=== PATIENT | male | born 1935 | race Hispanic/Latino ===

== ENCOUNTER 2019-02-08 08:46 | Inpatient (IN) | payer MEDICARE ==
[~2019-02-08] VITALS: Ht 170.2 cm; Wt 77.0 kg
[~2019-02-08 08:46] MED LIST: AMLODIPINE2.5 MG PO; BACTRIM DS1 TAB PO; CEPHALEXIN500 MG PO; CLARITIN10 MG PO; EXTRA STRENGTH500 MG; HYDROCHLOROT12.5 MG PO; METOCLOPRAMIDE H5 MG PO; METRONIDAZOL500 MG PO; OMEPRAZOLE40 MG PO; PERCOCET 5/321 COMBO PO; PERCOCET 5/325M1 TAB PO
[2019-02-08 09:36] LABS: HEMATOCRIT 45.7 % (39.0-50.0); HEMOGLOBIN 14.9 g/dl (14.0-18.0); IMMATURE GRANULOCYTES 0.4 % (0.0-5.0); MEAN CELL VOLUME 92.3 fL CALC (80.0-100.0); MEAN CORPUSCULAR HGB 30.1 pG CALC (26.0-32.0); MEAN CORPUSCULAR HGB CONC 32.6 g/L CALC (32.0-36.0); NEUT# 10.89 thou/uL (1.82-7.42); RED BLOOD COUNT 4.95 mill/uL (4.70-6.10); RED CELL DISTRI WIDTH 12.9 % (11.5-15.5); URINE BILIRUBIN - DIPSTICK NEGATIVE (NEGATIVE); URINE BLOOD DIPSTICK NEGATIVE (NEGATIVE); URINE COLOR YELLOW; URINE GLUCOSE - DIPSTICK NEGATIVE (NEGATIVE); URINE KETONE TRACE mg/dL (NEGATIVE); URINE LEUK ESTERASE NEGATIVE (NEGATIVE); URINE NITRITE - DIPSTICK NEGATIVE (Negative); URINE PROTEIN - DIPSTICK TRACE mg/dL (NEG-TRACE); URINE SPECIFIC GRAVITY 1.015; URINE UROBILINOGEN - DIPSTICK 0.2 E.U./dL (0.2)
[2019-02-08 09:44] LABS: ALBUMIN 4.6 g/dL (3.2-5.0); ALKALINE PHOSPHATASE 114 u/l (38-126); ANION GAP 17 (6-22 (CALC)); BILIRUBIN, TOTAL 0.6 mg/dL (0.0-1.4); BUN 13 mg/dL (8-23); BUN/CREATININE RATIO 16 (12-20 (CALC)); CARBON DIOXIDE 25 mmol/l (22-30); CHLORIDE 104 mmol/l (95-108); CREATININE 0.8 mg/dL (0.7-1.3); GFR > 60 ML/MIN (>=60 (CALC)); GFR FOR AFR.AMER. > 60 ML/MIN (>=60 (CALC)); SGOT/AST 18 u/l (19-48); SODIUM 142 mmol/l (137-146); TOTAL PROTEIN 7.8 g/dL (6.3-8.2)
[2019-02-08 17:02] VITALS: BP 158/72
[2019-02-08 18:58] VITALS: BP 141/64
[2019-02-09] VITALS: BP 123/71
[2019-02-09 03:50] VITALS: BP 125/70
[2019-02-09 05:02] LABS: IMMATURE GRANULOCYTES 0.3 % (0.0-5.0); MEAN CELL VOLUME 92.7 fL CALC (80.0-100.0); MEAN CORPUSCULAR HGB 29.7 pG CALC (26.0-32.0); NEUT# 4.09 thou/uL (1.82-7.42); RED BLOOD COUNT 4.11 mill/uL (4.70-6.10); RED CELL DISTRI WIDTH 13.2 % (11.5-15.5)
[2019-02-09 05:07] LABS: HEMATOCRIT 38.1 % (39.0-50.0); HEMOGLOBIN 12.2 g/dl (14.0-18.0)
[2019-02-09 06:22] LABS: ALKALINE PHOSPHATASE 76 u/l (38-126); AMYLASE 37 u/l (30-110); ANION GAP 12 (6-22 (CALC)); BILIRUBIN, TOTAL 0.4 mg/dL (0.0-1.4); BUN 12 mg/dL (8-23); BUN/CREATININE RATIO 17 (12-20 (CALC)); CARBON DIOXIDE 25 mmol/l (22-30); CHLORIDE 107 mmol/l (95-108); CREATININE 0.7 mg/dL (0.7-1.3); GFR > 60 ML/MIN (>=60 (CALC)); GFR FOR AFR.AMER. > 60 ML/MIN (>=60 (CALC)); LIPASE 25 u/l (23-300); MAGNESIUM 1.8 mg/dL (1.6-2.3); POTASSIUM 4.1 mmol/l (3.5-5.1); SGOT/AST 16 u/l (19-48); SODIUM 140 mmol/l (137-146)
[2019-02-09 06:26] LABS: ALBUMIN 3.1 g/dL (3.2-5.0); TOTAL PROTEIN 5.7 g/dL (6.3-8.2)
[2019-02-09 10:00] VITALS: BP 116/68
[2019-02-09 16:53] VITALS: BP 127/60
[2019-02-09 19:00] VITALS: BP 111/58
[2019-02-10 03:48] VITALS: BP 111/51
[2019-02-10 05:24] LABS: HEMATOCRIT 38.3 % (39.0-50.0); HEMOGLOBIN 12.5 g/dl (14.0-18.0); IMMATURE GRANULOCYTES 0.7 % (0.0-5.0); MEAN CELL VOLUME 92.1 fL CALC (80.0-100.0); MEAN CORPUSCULAR HGB CONC 32.6 g/L CALC (32.0-36.0); NEUT# 3.58 thou/uL (1.82-7.42); RED BLOOD COUNT 4.16 mill/uL (4.70-6.10); RED CELL DISTRI WIDTH 13.1 % (11.5-15.5)
[2019-02-10 05:49] LABS: ALBUMIN 3.2 g/dL (3.2-5.0); ALKALINE PHOSPHATASE 71 u/l (38-126); ANION GAP 12 (6-22 (CALC)); BILIRUBIN, TOTAL 0.4 mg/dL (0.0-1.4); BUN 13 mg/dL (8-23); BUN/CREATININE RATIO 18 (12-20 (CALC)); CARBON DIOXIDE 26 mmol/l (22-30); CHLORIDE 104 mmol/l (95-108); CREATININE 0.7 mg/dL (0.7-1.3); GFR > 60 ML/MIN (>=60 (CALC)); GFR FOR AFR.AMER. > 60 ML/MIN (>=60 (CALC)); MAGNESIUM 1.9 mg/dL (1.6-2.3); SGOT/AST 25 u/l (19-48); SODIUM 138 mmol/l (137-146); TOTAL PROTEIN 5.7 g/dL (6.3-8.2)
[2019-02-10 07:58] VITALS: BP 141/68
== END 2019-02-10 14:45 | disposition home or self-care (01) | DRG 390 ==
LOC: ED 08:46 → ED-I 14:50 → MS2 15:07 → ED 15:07 → MS2 16:20
PROVIDERS: Emergency Medicine; ADMIT Internal Medicine Nephrology; ATTEND Internal Medicine Nephrology
DX: K56.600 Partial intestinal obstruction, unspecified as to cause (principal); I10 Essential (primary) hypertension; K21.9 Gastro-esophageal reflux disease without esophagitis; Z90.49 Acquired absence of other specified parts of digestive tract; Z87.891 Personal history of nicotine dependence
CPT/HCPCS: Q9967; S0164

== ENCOUNTER 2022-02-17 15:06 | Emergency (ER) | payer MEDICARE ==
[~2022-02-17] VITALS: Ht 170.2 cm; Wt 68.0 kg
[2022-02-17] VITALS (16 sets, daily range): BP systolic 124–165; BP diastolic 59–78
[2022-02-17 15:37] LABS: HEMATOCRIT 38.7 % (39.0-50.0); HEMOGLOBIN 12.8 g/dl (14.0-18.0); IMMATURE GRANULOCYTES 0.5 % (0.0-5.0); MEAN CELL VOLUME 93.9 fL CALC (80.0-100.0); MEAN CORPUSCULAR HGB 31.1 pG CALC (26.0-32.0); MEAN CORPUSCULAR HGB CONC 33.1 g/dL CAL (32.0-36.0); NEUT# 7.64 thou/uL (1.82-7.42); RED BLOOD COUNT 4.12 mill/uL (4.70-6.10); RED CELL DISTRI WIDTH 12.9 % (11.5-15.5)
[2022-02-17 15:57] LABS: ALBUMIN 4.1 g/dL (3.2-5.0); ALKALINE PHOSPHATASE 120 u/l (38-126); ANION GAP 15 (6-22 (CALC)); BUN 12 mg/dL (8-23); BUN/CREATININE RATIO 17 (12-20 (CALC)); CARBON DIOXIDE 24 mmol/l (22-30); CHLORIDE 107 mmol/l (95-108); CPK 77 u/l (52-200); CREATININE 0.7 mg/dL (0.7-1.3); ETHYL ALCOHOL 0 mg/dl (0-30); GFR > 60 ML/MIN (>=60 (CALC)); GFR FOR AFR.AMER. > 60 ML/MIN (>=60 (CALC)); LIPASE 40 u/l (23-300); POTASSIUM 2.9 mmol/l (3.5-5.1); SGOT/AST 21 u/l (19-48); SODIUM 143 mmol/l (137-146)
[2022-02-17 15:58] LABS: BILIRUBIN, TOTAL 0.2 mg/dL (0.0-1.4); PROTHROMBIN TIME 10.2 SECONDS (9.0-12.5)
[2022-02-17] MEDS ORDERED: KLOR-CON M2020 MEQ PO (18:15)
== END 2022-02-17 19:25 | disposition home or self-care (01) ==
LOC: ED 15:06
PROC: 0RSJXZZ Reposition Right Shoulder Joint, External Approach (ICD-10-PCS; principal; 2022-02-17)
DX: S43.014A Anterior dislocation of right humerus, initial encounter (principal); S00.03XA Contusion of scalp, initial encounter; E87.6 Hypokalemia; I10 Essential (primary) hypertension; K21.9 Gastro-esophageal reflux disease without esophagitis; W01.0XXA Fall on same level from slipping, tripping and stumbling without subsequent striking against object, initial encounter; Y93.89 Activity, other specified; Y92.007 Garden or yard of unspecified non-institutional (private) residence as the place of occurrence of the external cause; Z20.822 Contact with and (suspected) exposure to COVID-19

== ENCOUNTER 2022-06-08 11:05 | Inpatient (IN) | payer MEDICARE ==
[2022-06-08] VITALS (32 sets, daily range): BP systolic 117–177; BP diastolic 47–84
[~2022-06-08] VITALS: Ht 170.2 cm; Wt 71.0 kg
[~2022-06-08 11:05] MED LIST changes: +KLOR-CON M2020 MEQ PO
--- NOTE | 2022-06-08 11:15 | NUR ---
PT TO ROOM 14 FOR BEDSIDE TRIAGE.
--- NOTE | 2022-06-08 12:16 | NUR ---
PROVIDER AT BEDSIDE.
[2022-06-08 13:16] LABS: HEMATOCRIT 41.9 % (39.0-50.0); IMMATURE GRANULOCYTES 0.2 % (0.0-5.0); MEAN CELL VOLUME 89.7 fL CALC (80.0-100.0); MEAN CORPUSCULAR HGB CONC 33.4 g/dL CAL (32.0-36.0); NEUT# 8.22 thou/uL (1.82-7.42); RED BLOOD COUNT 4.67 mill/uL (4.70-6.10); RED CELL DISTRI WIDTH 13.1 % (11.5-15.5)
[2022-06-08 13:32] LABS: ALKALINE PHOSPHATASE 104 u/l (38-126); ANION GAP 15 (6-22 (CALC)); BILIRUBIN, TOTAL 0.5 mg/dL (0.0-1.4); BUN 13 mg/dL (8-23); BUN/CREATININE RATIO 18 (12-20 (CALC)); CARBON DIOXIDE 26 mmol/l (22-30); CHLORIDE 102 mmol/l (95-108); CREATININE 0.7 mg/dL (0.7-1.3); GFR FOR AFR.AMER. > 60 ML/MIN (>=60 (CALC)); GFR OTHER RACES > 60 ML/MIN (>=60 (CALC)); LIPASE < 10 u/l (23-300); POTASSIUM 4.3 mmol/l (3.5-5.1); SGOT/AST 18 u/l (19-48); SODIUM 139 mmol/l (137-146); TOTAL PROTEIN 7.2 g/dL (6.3-8.2)
--- NOTE | 2022-06-08 15:15 | NUR ---
18FR. SALEM-SUMP NG TUBE PLACED VIA R-NARE. PLACEMENT VERIFIED VIA AUSCULTATION OF AIR BOLUS AND ASPIRATION OF STOMACH CONTENT. OUTPUT IS MOSTLY CLEAR AND PT REPORTS HE'S "ONLY BEEN DRINKING WATER" AND HASNT EATNE SINCE YESTERDAY. PT TOLERATED PROCEDURE WELL.
[2022-06-08] MEDS ORDERED: LOSARTAN POTASS25 MG PO (16:23)
[2022-06-08] MEDS ORDERED: METFORMIN HCL500 M1 PO (16:24)
--- NOTE | 2022-06-08 16:56 | NUR ---
PT'S SON AT BEDSIDE. UPDATED ON PLAN OF CARE.
--- NOTE | 2022-06-08 18:10 | NUR ---
PT ARRIVED TO [facility] VIA STRETCHER, ACCOMPANIED BY TEN WILSON. PT A&O X3. EVEN AND UNLABORED RESPIRATIONS; CLEAR LUNG SOUNDS. TELEMETRY IN PLACE. IV SITE HEALTHY AND PATENT. NG TUBE IN PLACE. PT ORIENTED TO ROOM AND USE OF CALL LIGHT. SAFETY PRECAUTIONS IN PLACE WITH CALL LIGHT IN REACH.
--- NOTE | 2022-06-08 18:15 | NUR ---
PT TRANSFERRED UP TO ROOM 263 VIA STRETCHER. BEDSIDE REPORT GIVEN TO EDGAR HENDERSON.
--- NOTE | 2022-06-08 19:35 | NUR ---
PATIENT RESTING BED. NO DISTRESS NOTED. PATIENT IS UPPER SORBIAN SPEAKING ONLY. ADMISSION ASSESSMENT COMPLETED WITH SANTIAGO TANNER. PATIENT AOX3. STATES THAT HE HAS SOME DISCOMFORT IN LOWER ABDOMEN, BUT DOES NOT NEED ANY PAIN MEDICATION. NG TUBE IN PLACE ON LOW INTERMITTENTENT SUCTION. FALL PRECAUTION REVIEWED WITH PATIENT. PLACED ON BED ALARM. CALL KHAN WITHIN REACH.
[2022-06-09 03:56] VITALS: BP 132/61
[2022-06-09 04:42] LABS: MEAN CELL VOLUME 89.8 fL CALC (80.0-100.0); MEAN CORPUSCULAR HGB 30.2 pG CALC (26.0-32.0); MEAN CORPUSCULAR HGB CONC 33.6 g/dL CAL (32.0-36.0); RED BLOOD COUNT 3.84 mill/uL (4.70-6.10); RED CELL DISTRI WIDTH 13.4 % (11.5-15.5)
[2022-06-09 04:46] LABS: HEMATOCRIT 34.5 % (39.0-50.0); HEMOGLOBIN 11.6 g/dl (14.0-18.0)
[2022-06-09 04:58] LABS: ALBUMIN 2.9 g/dL (3.2-5.0); ALKALINE PHOSPHATASE 69 u/l (38-126); ANION GAP 10 (6-22 (CALC)); BILIRUBIN, TOTAL 0.5 mg/dL (0.0-1.4); BUN 11 mg/dL (8-23); BUN/CREATININE RATIO 18 (12-20 (CALC)); CARBON DIOXIDE 23 mmol/l (22-30); CHLORIDE 110 mmol/l (95-108); CREATININE 0.6 mg/dL (0.7-1.3); GFR FOR AFR.AMER. > 60 ML/MIN (>=60 (CALC)); GFR OTHER RACES > 60 ML/MIN (>=60 (CALC)); MAGNESIUM 1.6 mg/dL (1.6-2.3); POTASSIUM 4.5 mmol/l (3.5-5.1); SGOT/AST 19 u/l (19-48); SODIUM 139 mmol/l (137-146); TOTAL PROTEIN 5.5 g/dL (6.3-8.2)
--- NOTE | 2022-06-09 06:50 | NUR ---
RECEIVED REPORT FROM TEN MONTOYA.
[2022-06-09 06:52] VITALS: BP 123/53
--- NOTE | 2022-06-09 08:10 | NUR ---
.PT SITTING ON BED LOW FOWLERS; A&O X3. PT WITH HEARING DEFICIT. EVEN AND UNLABORED RESPIRATIONS: CLEAR LUNG SOUNDS UPON AUSCULTATION. TELEMETRY IN PLACE WITH LAST READING SR-70. NG TUBE IN PLACE WITH LOW INTERMITTENT SUCTION. HYPOACTIVE BOWEL SOUNDS X4 QUADRANTS. SAFETY PRECAUTIONS IN PLACE WITH CALL LIGHT IN REACH,
[2022-06-09 10:22] VITALS: BP 129/48
--- NOTE | 2022-06-09 11:17 | NUR ---
ADMINISTERED LAST DOSE OF GASTROGRAFIN, RADIOLOGY DEPARTMENT INFORMED OF SAME.
--- NOTE | 2022-06-09 12:00 | NUR ---
PT RESTING WITH EYES CLOSED. NO DISTRESS OR PAIN NOTED. IV SITE HEALTHY AND PATENT, INFUSING IV FLUIDS PER ORDER. PT REMAINS NPO. SAFETY PRECAUTIONS IN PLACE WITH CALL LIGHT IN REACH.
--- NOTE | 2022-06-09 12:42 | NUR ---
PT TAKEN TO RADIOLOGY VIA WHEELCHAIR BY AIDE; TO RADIOLOGY FOR CT SCAN.
--- NOTE | 2022-06-09 13:02 | NUR ---
PT IS BACK FROM CT SCAN. IV SITE HEALTHY AND PATENT, INFUSING IV FLUIDS PER ORDER. NG TUBE IN PLACE WITH LOW INTTERMITANT SUCTION. SAFETY PRECAUTIONS IN PLACE WITH CALL LIGHT IN REACH.
[2022-06-09 14:50] VITALS: BP 138/60
--- NOTE | 2022-06-09 14:58 | NUR ---
PT ON BED LOW FOWLERS POSITION. FAMILY AT BEDSIDE. PT AND FAMILY INFORMED OF NG TUBE REMOVAL ORDERS; PT AND FAMILY AGREED TO SAME. NG TUBE REMOVED FROM RT NARE, PT TOLERATED WELL. PT ASSISTED TO BATHROOM: DARK GREEN FORMED BM. PT INFORMED ABOUT NEW FULL LIQUID DIET PER 'S DIRK ORDERS. SAFETY PRECAUTIONS IN PLACE WITH CALL LIGHT IN REACH.
--- NOTE | 2022-06-09 16:15 | NUR ---
PT RESTING WITH EYES CLOSED. NO DISTRESS OR PAIN NOTED. IV SITE HEALTHY AND PATENT, INFUSING IV FLUIDS PER ORDER. SAFETY PRECAUTIONS IN PLACE WITH CALL LIGHT IN REACH.
[2022-06-09 17:23] LABS: URINE BILIRUBIN - DIPSTICK NEGATIVE (NEGATIVE); URINE BLOOD DIPSTICK NEGATIVE (NEGATIVE); URINE COLOR YELLOW; URINE GLUCOSE - DIPSTICK NEGATIVE (NEGATIVE); URINE KETONE NEGATIVE (NEGATIVE); URINE LEUK ESTERASE NEGATIVE (NEGATIVE); URINE NITRITE - DIPSTICK NEGATIVE (Negative); URINE PROTEIN - DIPSTICK NEGATIVE (NEG-TRACE); URINE UROBILINOGEN - DIPSTICK 0.2 E.U./dL (0.2)
[2022-06-09 18:58] VITALS: BP 132/52
--- NOTE | 2022-06-09 20:00 | NUR ---
PT RESTING IN BED, NO SIGNS OF DISTRESS NOTED, PT COLD SPRINGS, DISCUSSED POC, VERBALIZED UNDERSTANDING. PT STATES HE IS READY TO GO HOME, DENIES ANY PAIN, STATES HE HAD A BM, 06/09. BS ACTIVE X4, NO NAUSEA/VOMITING. ASSESSMENT COMPLETED, DENIES ANY NEEDS OR COMPLAINTS AT THIS TIME, IVF INFUSING TO LFA, TOLERATING WELL. CALL LIGHT IN REACH,CONTINUE TO MONITOR.
[2022-06-10 00:26] VITALS: BP 138/60
--- NOTE | 2022-06-10 00:26 | NUR ---
PT RESTING IN BED, VITALS OBTAINED, VOICES NO NEEDS OR COMPLAINTS AT THIS TIME, CALL LIGHT IN REACH,CONTINUE TO MONITOR.
[2022-06-10 03:54] VITALS: BP 143/56
--- NOTE | 2022-06-10 04:00 | NUR ---
PT RESTING IN BED, NO SIGNS OF DISTRESS NOTED, RESP EVEN AND UNLABORED. CALL LIGHT IN REACH,CONTINUE TO MONITOR.
[2022-06-10 05:44] LABS: HEMATOCRIT 36.9 % (39.0-50.0); HEMOGLOBIN 12.5 g/dl (14.0-18.0); IMMATURE GRANULOCYTES 0.2 % (0.0-5.0); MEAN CELL VOLUME 89.8 fL CALC (80.0-100.0); MEAN CORPUSCULAR HGB 30.4 pG CALC (26.0-32.0); MEAN CORPUSCULAR HGB CONC 33.9 g/dL CAL (32.0-36.0); NEUT# 2.06 thou/uL (1.82-7.42); RED BLOOD COUNT 4.11 mill/uL (4.70-6.10); RED CELL DISTRI WIDTH 13.3 % (11.5-15.5)
[2022-06-10 06:04] LABS: ANION GAP 11 (6-22 (CALC)); BUN 9 mg/dL (8-23); BUN/CREATININE RATIO 13 (12-20 (CALC)); CARBON DIOXIDE 25 mmol/l (22-30); CHLORIDE 108 mmol/l (95-108); CREATININE 0.7 mg/dL (0.7-1.3); GFR FOR AFR.AMER. > 60 ML/MIN (>=60 (CALC)); GFR OTHER RACES > 60 ML/MIN (>=60 (CALC)); POTASSIUM 4.2 mmol/l (3.5-5.1); SODIUM 140 mmol/l (137-146)
--- NOTE | 2022-06-10 06:50 | NUR ---
RECEIVED REPORT FROM SANTIAGO MOON.
[2022-06-10 07:08] VITALS: BP 148/57
--- NOTE | 2022-06-10 08:40 | NUR ---
PT SITTING ON BED LOW FOWLERS; A&O X3. EVEN AND UNLABORED RESPIRATIONS: CLEAR LUNG SOUNDS UPON AUSCULTATION. TELEMETRY IN PLACE WITH LAST READFING SR-67. IV SITE HEALTHY AND PATENT. ACTIVE BOWEL SOUNDS X4 QUADRANTS. PT STATES HAVING BM THIS AM. PT DENIES PAIN AT THIS MOMENT. SAFETY PRECAUTIONS IN PLACE WITH CALL LIGHT IN REACH.
[2022-06-10 11:21] VITALS: BP 163/69
--- NOTE | 2022-06-10 12:00 | NUR ---
PT SITTING ON SIDE OF BED HAVING LUNCH. NO DISTRESS OR PAIN NOTED. IV HEALTHY AND PATENT, INFUSING IV FLUIDS PER EMAR. NO NEEDS AT THIS TIME. SAFETY PRECAUTIONS IN PLACE WITH CALL LIGHT IN REACH.
--- NOTE | 2022-06-10 14:15 | NUR ---
PT AND FAMILY MEMEBER EDUCATED ON DC INSTRUCTIONS: SHOWED UNDERSTANDING. REMOVED IV: #20 LEFT FOREARM, CATHETER INTACT UPON REMOVAL, PT TOLERATED WELL. TELEMETRY BOX REMOVED, ER NOTIFIED OF SAME.
--- NOTE | 2022-06-10 14:26 | NUR ---
PT LEFT @ 1418. Discharge instructions given. Patient verbalizes understanding of same. Discharged in stable condition via Wheelchair to Home with staff. All belongings sent with pt.
== END 2022-06-10 14:20 | disposition home or self-care (01) | DRG 390 ==
LOC: ED 11:05 → ED-I 14:40 → MS2 15:32 → ED 15:32 → MS2 21:59
PROVIDERS: Internal Medicine; Nurse Practitioner; ADMIT Internal Medicine; ATTEND Internal Medicine
DX: K56.51 Intestinal adhesions [bands], with partial obstruction (principal); I10 Essential (primary) hypertension; E11.9 Type 2 diabetes mellitus without complications; K21.9 Gastro-esophageal reflux disease without esophagitis; Z90.49 Acquired absence of other specified parts of digestive tract; Z87.891 Personal history of nicotine dependence; Z79.84 Long term (current) use of oral hypoglycemic drugs; Z20.822 Contact with and (suspected) exposure to COVID-19
CPT/HCPCS: J1650; Q9967

== ENCOUNTER 2023-06-09 03:04 | Observation (INO) | payer MEDICARE ==
[2023-06-09] VITALS (28 sets, daily range): BP systolic 115–170; BP diastolic 56–94
[~2023-06-09] VITALS: Ht 170.2 cm; Wt 76.4 kg
[~2023-06-09 03:04] MED LIST changes: +LOSARTAN POTASS25 MG PO; +METFORMIN HCL500 M1 PO
--- NOTE | 2023-06-09 03:05 | NUR ---
PT ARRIVED VIA PRIVATE MOTOR VEHICLE
[2023-06-09 03:40] LABS: BASO% 0.2 % (0-3); HEMOGLOBIN 15.3 g/dl (14.0-18.0); IMMATURE GRANULOCYTES 0.4 % (0.0-5.0); LYMPH% 18.1 % (15-41); MEAN CELL VOLUME 96.2 fL CALC (80.0-100.0); MEAN CORPUSCULAR HGB 30.9 pG CALC (26.0-32.0); MEAN CORPUSCULAR HGB CONC 32.1 g/dL CAL (32.0-36.0); MONO% 2.3 % (2-13); NEUT# 16.77 thou/uL (1.82-7.42); RED BLOOD COUNT 4.95 mill/uL (4.70-6.10)
[2023-06-09 03:42] LABS: HEMATOCRIT 47.6 % (39.0-50.0)
[2023-06-09 03:54] LABS: ALKALINE PHOSPHATASE 136 u/l (38-126); AMYLASE 73 u/l (30-110); BILIRUBIN, TOTAL 0.7 mg/dL (0.2-1.3); BUN 11 mg/dL (8-23); BUN/CREATININE RATIO 13 (12-20 (CALC)); CHLORIDE 100 mmol/l (95-108); CREATININE 0.9 mg/dL (0.7-1.3); GFR FOR AFR.AMER. > 60 ML/MIN (>=60 (CALC)); GFR OTHER RACES > 60 ML/MIN (>=60 (CALC)); POTASSIUM 3.9 mmol/l (3.5-5.1); SGOT/AST 39 u/l (19-48); SODIUM 140 mmol/l (137-146)
[2023-06-09 03:56] LABS: ALBUMIN 4.6 g/dL (3.2-5.0); ANION GAP 22 (6-22 (CALC)); CARBON DIOXIDE 22 mmol/l (22-30)
--- NOTE | 2023-06-09 04:05 | NUR ---
PT SEPSIS ALERTED PER WBS ELEVATION; LA ELEVATION AND HIGH HEART RATE
--- NOTE | 2023-06-09 04:25 | NUR ---
PT TO CT
--- NOTE | 2023-06-09 05:20 | NUR ---
2ND LA DRAWN AND TAKEN TO LAB
--- NOTE | 2023-06-09 05:39 | NUR ---
2ND LITER OF FLUID HUNG PER MD ORDER; PT STATES HE FEELS A LOT BETTER NOW AND HR DOWN TO 101; VSS AND SON AT BEDSIDE
--- NOTE | 2023-06-09 05:43 | NUR ---
PT REMAINS TO STATE NO NEED TO URINATE; WILL CONT TO ROUND AND REMIND PT FOR URINE; VSS AT BEDSIDE
--- NOTE | 2023-06-09 06:47 | NUR ---
PT LA COME DOWN; AWARE; PT VSS WNL AT BEDSIDE; PT STILL STATES NO NEED TO URINATE; WILL PASS ON TO DAYSHIFT FOR POSSIBLE BLADDER SCAN SOON
--- NOTE | 2023-06-09 07:05 | NUR ---
ASSUMED CARE OF PT. PT TO US VIA STRETCHER . SON AT BEDSIDE.
--- NOTE | 2023-06-09 10:17 | NUR ---
PT ARRIVED TO ROOM 280 BY WHEELCHAIR ACCOMPANIED BY ED RN. PT IS ABLE TO WALK INDEPENDENTLY AND DOES SPEAK INDONESIAN WHICH IS DIFFERENT THAN INITIALLY REPORTED. PT WAS ABLE TO GIVE HIS HISTORY AND ANSWER ALL QUESTIONS. PT ENDORSES ABDOMINAL PAIN 6/10 WHICH HE STATES IS GETTING WORSE. WILL ADMINISTER PAIN MEDICATION ORDERED BY SURGEON.
--- NOTE | 2023-06-09 10:22 | NUR ---
REPORT GIVEN TO MED SURG, PT TAKEN TO ROOM 280 VIA WC IN STABLE CONDITION.
--- NOTE | 2023-06-09 11:44 | NUR ---
BANQUET MANAGER UNABLE TO DRAW LABBSTEN JONA FROM RIGHT HAND/WRIST.
[2023-06-09 11:46] LABS: ALKALINE PHOSPHATASE 85 u/l (38-126); ANION GAP 13 (6-22 (CALC)); BILIRUBIN, TOTAL 0.7 mg/dL (0.2-1.3); BUN 13 mg/dL (8-23); BUN/CREATININE RATIO 18 (12-20 (CALC)); CARBON DIOXIDE 19 mmol/l (22-30); CHLORIDE 109 mmol/l (95-108); CREATININE 0.7 mg/dL (0.7-1.3); GFR FOR AFR.AMER. > 60 ML/MIN (>=60 (CALC)); GFR OTHER RACES > 60 ML/MIN (>=60 (CALC)); MAGNESIUM 1.6 mg/dL (1.6-2.3); POTASSIUM 4.4 mmol/l (3.5-5.1); SGOT/AST 27 u/l (19-48); SODIUM 137 mmol/l (137-146)
[2023-06-09 11:53] LABS: ALBUMIN 3.2 g/dL (3.2-5.0); TOTAL PROTEIN 5.8 g/dL (6.3-8.2)
--- NOTE | 2023-06-09 22:58 | NUR ---
PATIENT RESTING IN BED-TELE LEADS HAVE BEEN REPLACED AND TELE IS NOW READING ST-ONE TEENS. PATIENT MEDICATED FOR PAIN WITH DILAUDID 1MG IVP FOR POST-OP PAIN-04/15. IVF PATENT AND INFUSING VIA LEFT AC AT 125CC/HR. SITE IS HEALTHY WITH GOOD BLOOD RETURN. PATIENT TAKING PO FLUIDS AND TOLERATING WELL. 3 SMALL ABD INCISIONS INTACT WITH DERMABOND WITH NO DRAINAGE NOTED. ABD IS SOFT WITH HYPOACTIVE BS. LUNGS ARE DIM,INISHED. ENCOURAGED CDB EXERCISES. INSTRUCTED ON USE OF IS Q1H WHILE AWAKE. NO PERIPHERAL EDEMA NOTED PULSES ARE PALPABLE. CALL LIGHT IN REACH. WILL CONT TO MONITOR. BED ALARM IN PLACE FOR PATIENT SAFETY
[2023-06-10 00:13] VITALS: BP 122/58
--- NOTE | 2023-06-10 00:57 | NUR ---
PATIENT RESTING IN BEDP-EYES ARE CLOSED AND RESPS ARE EVEN AND UNLABORED. IVF PATENT AND INFUSING VIA LAC ORDERED. TELE MONITOR IN PLACE AND PATIENT REMAINS IN LOW 100'S. BED ALARM IN PLACE FOR PATIENT SAFETY. CALL LIGHT IN REACH. WILL CONT TO MONITOR.
--- NOTE | 2023-06-10 03:12 | NUR ---
BED ALRM GOING OFF AND REPONDED TO PATIENT ROOM-PATIENT IS TRYING TO GET OOB. ASSISTED BACK INTO BED. TELE MONITOR IN PLACE. IVF PATENT AND INFUSING VIA LAC SITE. BED ALRM IN PLACE. CALL LIGHT IN REACH. WILL CONT TO MONITOR.
[2023-06-10 04:48] VITALS: BP 125/63
[2023-06-10 06:40] VITALS: BP 129/65
[2023-06-10 06:45] VITALS: BP 97/44
--- NOTE | 2023-06-10 08:00 | NUR ---
PT IN BED WITH HOB UP. PT IS ALERT AND ORIENTED X3, AZERI SPEAKING AND SOME BROKEN TURKISH. PT C/O PAIN TO ABD AT 2/10 ON PAIN SCALE, WILL MEDICATE WITH PRN MEDICATION WHEN NEXT DUE. PT HAS TELE ON WITH ALL LEADS ATTACHED. PT LUNG SOUNDS CLEAT. ABD DISTENDED AND FIRM WITH 5 SMALL INCISION SITE, CLOSED WITH DUODERM, CLEAN, INTACT AND FREE FROM ANY REDNESS. PT IV SITE WITH NS @ 125 ML/HR INFUSING. SCD'S INTACT TO BLE. PT HAS URINAL AT BEDSIDE. PT HAS CALL LIGHT WITHIN REACH AND ALL SAFETY MEASURES IN PLACE.
[2023-06-10] MEDS ORDERED: PERCOCET 5/325M1 TAB PO (11:02)
[2023-06-10 11:14] VITALS: BP 120/55
--- NOTE | 2023-06-10 11:53 | NUR ---
Discharge instructions given. Patient verbalizes understanding of same. Discharged in stable condition via Wheelchair to Home with family. All belongings sent with pt.
== END 2023-06-10 11:51 | disposition home or self-care (01) ==
LOC: ED 03:04 → ED-I 09:08 → ED 09:23 → MS2 09:24 → ED 09:24 → MS2 09:33
PROVIDERS: Emergency Medicine; Student in an Organized Health Care Education/Training Program; ADMIT Surgery; ATTEND Surgery
PROC: 0FT44ZZ Resection of Gallbladder, Percutaneous Endoscopic Approach (ICD-10-PCS; principal; 2023-06-09)
DX: K80.12 Calculus of gallbladder with acute and chronic cholecystitis without obstruction (principal); K82.1 Hydrops of gallbladder; I10 Essential (primary) hypertension; E11.9 Type 2 diabetes mellitus without complications; K21.9 Gastro-esophageal reflux disease without esophagitis; Z90.49 Acquired absence of other specified parts of digestive tract; Z79.84 Long term (current) use of oral hypoglycemic drugs; Z87.891 Personal history of nicotine dependence; Z20.822 Contact with and (suspected) exposure to COVID-19
CPT/HCPCS: J1610; Q9966; Q9967

== ENCOUNTER 2024-10-27 16:28 | Observation (INO) | payer MEDICARE ==
[2024-10-27] VITALS (10 sets, daily range): BP systolic 106–151; BP diastolic 49–67
[~2024-10-27] VITALS: Ht 170.2 cm; Wt 71.0 kg
--- NOTE | 2024-10-27 16:30 | NUR ---
TO ROOM VIA EMS AT BEDSIDE
[2024-10-27] MEDS ORDERED: SODIUM CHLORIDE 0.9% 1,000 ML BAG IV ONE (16:45)
[2024-10-27 17:33] LABS: BASO% 0.1 % (0-3); HEMATOCRIT 40.5 % (39.0-50.0); IMMATURE GRANULOCYTES 2.9 % (0.0-5.0); LYMPH% 5.9 % (15-41); MEAN CORPUSCULAR HGB 30.8 pG CALC (26.0-32.0); MEAN CORPUSCULAR HGB CONC 32.1 g/dL CAL (32.0-36.0); MONO% 1.4 % (2-13); NEUT# 7.02 thou/uL (1.82-7.42); NEUT% 89.7 % (42-76); RED BLOOD COUNT 4.22 mill/uL (4.70-6.10)
--- NOTE | 2024-10-27 17:35 | NUR ---
PT RESTING IN BED, FAMILY AT BEDSIDE, CALL LIGHT WITHIN REACH, VSS, DENIES ANY NEEDS
[2024-10-27 17:42] LABS: ALBUMIN 3.9 g/dL (3.2-5.0); CREATININE 0.9 mg/dL (0.7-1.3); POTASSIUM 3.7 mmol/l (3.5-5.1); TOTAL PROTEIN 6.5 g/dL (6.3-8.2)
[2024-10-27 17:45] LABS: BILIRUBIN, TOTAL 0.8 mg/dL (0.2-1.3)
[2024-10-27] MEDS ORDERED: ACETAMINOPHEN325 MG PO (18:08)
[2024-10-27] MEDS ORDERED: TRAMADOL HYDROC50 M1 PO (18:08)
[2024-10-27 18:09] LABS: URINE BILIRUBIN - DIPSTICK Negative (NEGATIVE); URINE BLOOD DIPSTICK Trace-lysed (NEGATIVE); URINE GLUCOSE - DIPSTICK 100 mg/dL (NEGATIVE); URINE KETONE Negative (NEGATIVE); URINE LEUK ESTERASE Negative (NEGATIVE); URINE NITRITE - DIPSTICK Negative (Negative); URINE PH 5.5 (4.5-8.0); URINE PROTEIN - DIPSTICK 100 mg/dL (NEG-TRACE); URINE SPECIFIC GRAVITY 1.015; URINE UROBILINOGEN - DIPSTICK 0.2 E.U./dL (0.2)
[2024-10-27 18:10] LABS: URINE COLOR Yellow
[2024-10-27 18:18] LABS: URINE RBC 0-2 RBC/hpf (0-5)
[2024-10-27 18:19] LABS: URINE SQUAMOUS EPITHELIAL CELL RARE EPI/hpf (0-FEW); URINE WBC 0-2 WBC/hpf (0-5)
[2024-10-27] MEDS ORDERED: ACETAMINOPHEN 500 MG TAB PO ONE (18:25)
--- NOTE | 2024-10-27 19:05 | NUR ---
REPORT GIVEN TO TEN CANALES, CARE RELINQUISHED
[2024-10-27] MEDS ORDERED: SODIUM CHLORIDE 0.9% 1,000 ML IV ONE (19:25)
[2024-10-27] MEDS ORDERED: PIPERACILLIN Sodium-Tazobactam 3.375 GM in SODIUM CHLORIDE 0.9% 100 ML IV ONE (20:30)
[2024-10-27] MEDS ORDERED: LACTATED RINGER'S 1,000 ML IV PRN (20:35)
[2024-10-27] MEDS ORDERED: ACETAMINOPHEN 325 MG/TAB PO PRN ×2 (20:35→21:00)
[2024-10-27] MEDS ORDERED: oxyCODONE HCL 5 MG/TAB PO PRN (20:35)
[2024-10-27] MEDS ORDERED: ONDANSETRON 4 MG/TAB ODT SL PRN (20:35)
[2024-10-27] MEDS ORDERED: hydrALAZINE HCL 20 MG/ML VIAL(1 ML) IV PRN (20:45)
[2024-10-27] MEDS ORDERED: ENOXAPARIN SODIUM 40 MG/0.4 ML SYR SC SCH (21:00)
--- NOTE | 2024-10-27 21:08 | NUR ---
REPORT CALLED TO TEN SANTOS.
--- NOTE | 2024-10-27 21:40 | NUR ---
PATIENT TRANSPORTED TO MED SURG. CARE HANDED OVER TO Loli SUGGS RN
--- NOTE | 2024-10-27 21:44 | NUR ---
PATIENT ADMITTED TO [facility] VIA WC. ALERT AND ORIENTED, WITH PERIODS OF CONFUSION WHEN ANSWERING QUESTIONS. PLEASANT. PATIENT SPEAKS LITHUANIAN BUT CAN ALSO SPEAK KYRGYZ. AMBULATES WITH STANDBY ASSISTANCE FOR SAFETY. CONTINENT OF BLADDER, INCONTINENT OF BOWELS. DOES WEAR DISPOSABLE BRIEFS AT HOME. ASSESSMENT COMPLETE. NO DISTRESS NOTED. NO COMPLAINTS OF PAIN TO ABDOMEN AT THIS TIME. ABDOMEN APPEARS SOFT, NON TENDER AT THIS TIME. HYPOACTIVE BOWEL SOUNDS. LAST BM-TODAY. PATIENT DENIES ANY N/V. ORIENTED PATIENT TO ROOM, CALL KHAN AND SURROUNDINGS. FRESH WATER AT BEDSIDE. BED IN LOW POSITION. BED ALARM ON FOR SAFETY REASONS. CALL KHAN IN REACH.
--- NOTE | 2024-10-27 23:44 | NUR ---
PATIENT RESTING IN BED. NO COMPLAINTS OF PAIN. NO DISTRESS NOTED. BED REMAINS IN LOW POSITION. CALL KHAN AND BELONGINGS IN REACH. BED ALARM REMAINS ACTIVE FOR SAFETY.
[2024-10-28 03:58] VITALS: BP 118/55
[2024-10-28 04:00] VITALS: BP 118/55
--- NOTE | 2024-10-28 04:00 | NUR ---
PATIENT OBSERVED RESTING IN BED. NO COMPLAINTS OF PAIN VOICED TO ABDOMEN. NO COMPLAINTS OF N/V. DENIES NEEDING ANYTHING AT THIS TIME. BED REMAINS IN LOW POSITION. CALL KHAN AND BELONGINGS IN REACH. BED ALARM REMAINS ACTIVE FOR SAFETY.
[2024-10-28 05:56] LABS: BASO% 0.6 % (0-3); BILIRUBIN, TOTAL 0.8 mg/dL (0.2-1.3); EOS% 0.2 % (0-8); HEMATOCRIT 34.6 % (39.0-50.0); HEMOGLOBIN 11.1 g/dl (14.0-18.0); IMMATURE GRANULOCYTES 0.5 % (0.0-5.0); LYMPH% 9.3 % (15-41); MAGNESIUM 1.4 mg/dL (1.6-2.3); MEAN CELL VOLUME 99.1 fL CALC (80.0-100.0); MEAN CORPUSCULAR HGB 31.8 pG CALC (26.0-32.0); MEAN CORPUSCULAR HGB CONC 32.1 g/dL CAL (32.0-36.0); MONO% 17.6 % (2-13); NEUT# 7.49 thou/uL (1.82-7.42); NEUT% 71.8 % (42-76); RED BLOOD COUNT 3.49 mill/uL (4.70-6.10); RED CELL DISTRI WIDTH 13.3 % (11.5-15.5); TOTAL PROTEIN 5.2 g/dL (6.3-8.2)
[2024-10-28 05:57] LABS: ALBUMIN 2.9 g/dL (3.2-5.0)
[2024-10-28 06:34] VITALS: BP 114/45
--- NOTE | 2024-10-28 07:30 | NUR ---
PT RESTING IN BED NO DISTRESS NOTED ON ASSESSMENT. PT REPORTS NO PAIN AT THIS TIME. VS WNL ON RA LUNGS CLEAR. SKIN INTACT NO EDEMA NOTED. NO NAUSEA OR VOMITING REPORTED. IVF ONGOING WORKING PROPERLY. CALL LIGHT WITHIN REACH. PT STATED UNDERSTANDING ON HOW TO USE IT. PLAN OF CARE ONGOING.
[2024-10-28] MEDS ORDERED: MAGNESIUM SULFATE HEPTAHYDRATE 100 ML IV SCH (08:30)
[2024-10-28] MEDS ORDERED: DEXTROSE 250 ML IV PRN (09:05)
[2024-10-28] MEDS ORDERED: PANTOPRAZOLE SODIUM Sesquihydr 40 MG/TAB PO SCH (11:00)
[2024-10-28] MEDS ORDERED: INSULIN LISPRO 100 UNITS/ML ML SC SCH (11:00)
[2024-10-28] MEDS ORDERED: PIPERACILLIN Sodium-Tazobactam 3.375 GM in SODIUM CHLORIDE 0.9% 100 ML IV SCH ×2 (12:00)
--- NOTE | 2024-10-28 13:40 | NUR ---
PT BACK TO BED NO DISTRESS NOTED ON EXAM. PT REPORTS NO PAIN AT THIS TIME. PT COUNCIL. CALL LIGHT WITHIN REACH. PLAN OF CARE ONGOING.
[2024-10-28 14:52] VITALS: BP 139/62
[2024-10-28 18:30] VITALS: BP 124/56
[2024-10-28 18:44] VITALS: BP 124/56
--- NOTE | 2024-10-28 20:30 | NUR ---
PATIENT A/OX4, NO C/O PAIN, AND PATIENT ON ROOM AIR O2 SATS 97%. PATIENT GLUCOSE LEVEL 123. PATIENT AFEBRILE, NO N/V AND NO EPIGASTRIC PAIN. PATIENT CALL LIGHT WITHIN REACH
[2024-10-29 03:43] VITALS: BP 141/65
[2024-10-29 04:00] VITALS: BP 141/65
[2024-10-29 05:49] LABS: BASO% 0.7 % (0-3); HEMATOCRIT 32.4 % (39.0-50.0); HEMOGLOBIN 10.5 g/dl (14.0-18.0); IMMATURE GRANULOCYTES 0.5 % (0.0-5.0); LYMPH% 27.3 % (15-41); MEAN CELL VOLUME 96.4 fL CALC (80.0-100.0); MEAN CORPUSCULAR HGB 31.3 pG CALC (26.0-32.0); MEAN CORPUSCULAR HGB CONC 32.4 g/dL CAL (32.0-36.0); MONO% 26.4 % (2-13); NEUT# 1.9 thou/uL (1.82-7.42); NEUT% 43.1 % (42-76); RED BLOOD COUNT 3.36 mill/uL (4.70-6.10); RED CELL DISTRI WIDTH 13.4 % (11.5-15.5)
[2024-10-29 06:06] LABS: ALBUMIN 2.7 g/dL (3.2-5.0); CREATININE 1.2 mg/dL (0.7-1.3); POTASSIUM 3.8 mmol/l (3.5-5.1); TOTAL PROTEIN 5.1 g/dL (6.3-8.2)
[2024-10-29 06:08] VITALS: BP 150/63
[2024-10-29 06:17] LABS: BILIRUBIN, TOTAL 0.4 mg/dL (0.2-1.3); MAGNESIUM 2.2 mg/dL (1.6-2.3)
--- NOTE | 2024-10-29 07:45 | NUR ---
PT SLEEPING EASILY AROUSABLE [place] NO PAIN REPORTED. PT STATED THAT HE HAD DIARRHEA THROUGHOUT THE NIGHT. NURSE INFORM PT THAT A STOOL SAMPLE IS NEEDED. VS WNL ON NC 2L LUNGS CLEAR. SKIN INTACT WITH SOME SCATTERED BRUISING. IV FLUSHED WORKING PROPERLY SL. THOR HOSE ON NO EDEMA NOTED. CALL LIGHT WITHIN REACH. PLAN OF CARE ONGOING.
[2024-10-29] MEDS ORDERED: METRONIDAZOLE500 MG PO (11:54)
[2024-10-29] MEDS ORDERED: CIPROFLOXACN500 MG PO (11:54)
--- NOTE | 2024-10-29 12:14 | NUR ---
NURSE CALLED SON TO INFROM HIM OF DC ORDER.
--- NOTE | 2024-10-29 12:15 | NUR ---
PT RESTING IN BED NO DISTRESS NOTED ON EXAM. CALL LIGHT WITHIN REACH. PLAN OF CARE ONGOING.
--- NOTE | 2024-10-29 14:10 | NUR ---
Discharge instructions given. Patient verbalizes understanding of same. Discharged in good condition via Wheelchair to Home with son. All belongings sent with pt.
[2024-10-30] MEDS ORDERED: PNEUMOCOCCAL 20-VALENT CONJUGA 0.5 ML/DOSE INJ IM SCH (09:00)
[2024-10-30] MEDS ORDERED: INFLUENZA VIRUS VACCINE FLUZONE HD 2024/25 0.5 ML INJ IM SCH (09:00)
--- NOTE | 2024-10-30 12:06 | NUR ---
Discharge follow up call completed 10/30/24. Son states patient is doing well. He has prescribed medication and is taking as directed, Son plans to contact PCP today or Saturday to schedule a follow up appointment for the patient. No needs or concerns verbalized at this time.
== END 2024-10-29 14:10 | disposition home or self-care (01) ==
LOC: ED 16:28 → ED-I 20:10 → MS2 20:29 → ED 20:29 → MS2 20:29
PROVIDERS: Family Medicine; Nurse Practitioner Family; ADMIT Internal Medicine; ATTEND Internal Medicine
DX: K52.9 Noninfective gastroenteritis and colitis, unspecified (principal); E83.42 Hypomagnesemia; I10 Essential (primary) hypertension; E11.9 Type 2 diabetes mellitus without complications; K21.9 Gastro-esophageal reflux disease without esophagitis; Z90.49 Acquired absence of other specified parts of digestive tract; Z72.89 Other problems related to lifestyle; Z79.84 Long term (current) use of oral hypoglycemic drugs; Z20.822 Contact with and (suspected) exposure to COVID-19
CPT/HCPCS: 90662; J0696; J1650; J2543; J3475; Q9967

== ENCOUNTER 2024-12-04 19:08 | Emergency (ER) | payer MEDICARE ==
[~2024-12-04] VITALS: Ht 170.2 cm; Wt 64.0 kg
[~2024-12-04 19:08] MED LIST changes: +ACETAMINOPHEN325 MG PO; +CIPROFLOXACN500 MG PO; +METRONIDAZOLE500 MG PO; +TRAMADOL HYDROC50 M1 PO
[2024-12-04] MEDS ORDERED: SODIUM CHLORIDE 0.9% 1,000 ML IV STA (21:24)
[2024-12-04] MEDS ORDERED: PROMETHAZINE HCL 25 MG/ML AMP IV STA (21:24)
[2024-12-04] MEDS ORDERED: Pantoprazole Sodium 40 MG VIAL (Protonix) IV STA (21:24)
[2024-12-04] MEDS ORDERED: KETOROLAC TROMETHAMINE 30 MG/ML SDV IV ONE (21:25)
[2024-12-04 21:48] LABS: BASO% 0.2 % (0-3); HEMATOCRIT 42.1 % (39.0-50.0); IMMATURE GRANULOCYTES 0.4 % (0.0-5.0); LYMPH% 5.5 % (15-41); MEAN CORPUSCULAR HGB 31.3 pG CALC (26.0-32.0); MEAN CORPUSCULAR HGB CONC 33.3 g/dL CAL (32.0-36.0); MONO% 8.7 % (2-13); NEUT# 12.18 thou/uL (1.82-7.42); NEUT% 85.2 % (42-76); RED BLOOD COUNT 4.48 mill/uL (4.70-6.10); RED CELL DISTRI WIDTH 13.1 % (11.5-15.5)
[2024-12-04 22:09] VITALS: BP 147/78
[2024-12-04 22:30] VITALS: BP 150/82
[2024-12-04 22:35] LABS: ALBUMIN 3.9 g/dL (3.2-5.0); BILIRUBIN, TOTAL 0.6 mg/dL (0.2-1.3); CREATININE 0.8 mg/dL (0.7-1.3); TOTAL PROTEIN 6.7 g/dL (6.3-8.2)
[2024-12-04 22:41] LABS: POTASSIUM 3.3 mmol/l (3.5-5.1)
[2024-12-04 23:00] VITALS: BP 133/74
[2024-12-05] VITALS: BP 147/76
[2024-12-05 01:05] LABS: URINE BILIRUBIN - DIPSTICK Negative (NEGATIVE); URINE BLOOD DIPSTICK Negative (NEGATIVE); URINE GLUCOSE - DIPSTICK Negative (NEGATIVE); URINE KETONE Negative (NEGATIVE); URINE LEUK ESTERASE Negative (NEGATIVE); URINE NITRITE - DIPSTICK Negative (Negative); URINE PROTEIN - DIPSTICK Negative (NEG-TRACE); URINE UROBILINOGEN - DIPSTICK 0.2 E.U./dL (0.2)
[2024-12-05 01:08] LABS: URINE COLOR Yellow
[2024-12-05] MEDS ORDERED: CIPROFLOXACIN HCL 500 MG/TAB PO ONE (01:20)
[2024-12-05] MEDS ORDERED: metroNIDAZOLE 500 MG/TAB PO ONE (01:20)
[2024-12-05] MEDS ORDERED: PROMETHAZINE HCL 25 MG/TAB PO ONE (01:20)
[2024-12-05] MEDS ORDERED: METRONIDAZOLE500 MG PO (01:22)
[2024-12-05] MEDS ORDERED: CIPROFLOXACN500 MG PO (01:22)
[2024-12-05] MEDS ORDERED: PROMETHAZINE HY25 M1 PO (01:22)
[2024-12-06 01:57] VITALS: BP 147/76
[2024-12-06] MEDS ORDERED: HYDROXYZINE HYD25 MG PO (23:41)
== END 2024-12-05 02:00 | disposition home or self-care (01) ==
LOC: ED 19:08
PROVIDERS: Family Medicine
DX: K52.9 Noninfective gastroenteritis and colitis, unspecified (principal); I10 Essential (primary) hypertension; E11.9 Type 2 diabetes mellitus without complications; Z90.49 Acquired absence of other specified parts of digestive tract; Z79.84 Long term (current) use of oral hypoglycemic drugs; Z20.822 Contact with and (suspected) exposure to COVID-19
CPT/HCPCS: J2470; J2550; Q9967

== ENCOUNTER 2024-12-06 21:50 | Emergency (ER) | payer MEDICARE ==
[~2024-12-06] VITALS: Ht 170.2 cm; Wt 77.1 kg
[~2024-12-06 21:50] MED LIST changes: +PROMETHAZINE HY25 M1 PO
[2024-12-06 22:16] VITALS: BP 157/75
[2024-12-06] MEDS ORDERED: ACETAMINOPHEN 500 MG TAB PO ONE (22:20)
[2024-12-06 22:30] VITALS: BP 134/73
[2024-12-06 23:00] VITALS: BP 151/72
[2024-12-06] MEDS ORDERED: diazePAM 5 MG/TAB PO ONE (23:40)
[2024-12-06] MEDS ORDERED: HYDROXYZINE HYD25 MG PO (23:41)
[2024-12-07 00:49] VITALS: BP 151/72
== END 2024-12-07 00:49 | disposition home or self-care (01) ==
LOC: ED 21:50
DX: R51.9 Headache, unspecified (principal); G47.00 Insomnia, unspecified; E11.9 Type 2 diabetes mellitus without complications; I10 Essential (primary) hypertension; K21.9 Gastro-esophageal reflux disease without esophagitis; Z79.84 Long term (current) use of oral hypoglycemic drugs